=== PATIENT | female | born 2000 | race Caucasian/White ===

== ENCOUNTER 2019-01-29 16:56 | Emergency (ER) | payer BC ==
[~2019-01-29] VITALS: Ht 162.6 cm; Wt 60.8 kg
[~2019-01-29 16:56] MED LIST: CLARITIN10 MG; MUPIROCIN22 GM; SEPTRA DS TABL1 EACH
[2019-01-29 17:22] LABS: URINE BILIRUBIN NEGATIVE (Negative); URINE BLOOD 3+ (Negative); URINE CLARITY SL CLOUDY; URINE COLOR YELLOW; URINE GLUCOSE-RANDOM* NEGATIVE (Negative); URINE KETONES NEGATIVE (Negative); URINE LEUKOCYTES 2+ (Negative); URINE NITRITE NEGATIVE (Negative); URINE PROTEIN (DIPSTICK) TRACE (Negative); URINE SPECIFIC GRAVITY >= 1.030 (1.005-1.035)
[2019-01-29 17:37] LABS: MUCUS >6 Heavy strn/LPF (None Seen); SQUAMOUS >10 Many /LPF (0-3)
[2019-01-29 17:38] LABS: CASTS None Seen /LPF (None Seen); CRYSTALS None Seen /LPF (None Seen); URINE RBC 3-10 Few /HPF (0-2); URINE WBC 6-15 Few /HPF (0-5)
[2019-01-29 18:37] LABS: ABSOLUTE NEUTROPHILS 4.4 thou/uL (1.4-8.2); BASOPHILS 1.2 % (0.0-2.0); EOSINOPHILS 6.3 % (0.0-3.0); HEMATOCRIT 41.9 % (37.0-47.0); HEMOGLOBIN 14.3 gm/dL (12.0-15.0); LYMPHOCYTES 32.9 % (24.0-44.0); MCH 29.1 pg (26.0-34.0); MCHC 34.2 g/dL (28.0-37.0); MCV 85.1 fL (80.0-100.0); MONOCYTES 8.3 % (1.0-8.0); PLATELET COUNT 384 thou/uL (150-400); POLYS 51.3 % (36.0-66.0); RBC 4.93 mil/uL (4.20-5.00); RDW 13.3 % (10.5-14.5); WBC 8.6 thou/uL (4.0-11.0)
[2019-01-29 18:44] LABS: CALCIUM 9.1 mg/dL (8.5-10.1); CREATININE 0.8 mg/dL (0.6-1.0)
[2019-01-29 18:50] LABS: ALBUMIN 4.1 g/dL (3.4-5.0); TOTAL BILIRUBIN 0.5 mg/dL (<0.1-1.0); TOTAL PROTEIN 7.7 g/dL (6.4-8.2)
[2019-01-29] MEDS ORDERED: ULTRAM 50MG TAB50 MG PO (20:18)
[2019-01-29] MEDS ORDERED: IBUPROFEN 600600 M1 PO (20:18)
[2019-01-29] MEDS ORDERED: KEFLEX500 M1 PO (20:18)
[2019-01-29] MEDS ORDERED: ZOFRAN ODT4 MG PO (20:19)
[2019-01-29 20:39] VITALS: BP 108/62
== END 2019-01-29 20:39 | disposition home or self-care (01) ==
LOC: ER 16:56
PROVIDERS: Emergency Medicine
DX: N39.0 Urinary tract infection, site not specified (principal); R42 Dizziness and giddiness; F17.210 Nicotine dependence, cigarettes, uncomplicated

== ENCOUNTER 2019-08-30 13:21 | Emergency (ER) | payer BC ==
[~2019-08-30] VITALS: Ht 162.6 cm; Wt 63.5 kg
[~2019-08-30 13:21] MED LIST changes: +IBUPROFEN 600600 M1 PO; +KEFLEX500 M1 PO; +ULTRAM 50MG TAB50 MG PO; +ZOFRAN ODT4 MG PO
[2019-08-30] MEDS ORDERED: NAPROSYN500 MG PO (14:56)
[2019-08-30] MEDS ORDERED: TRAMADOL 50 MG50 MG PO (14:56)
[2019-08-30 15:30] VITALS: BP 96/62
== END 2019-08-30 15:30 | disposition home or self-care (01) ==
LOC: ER 13:21
DX: S60.221A Contusion of right hand, initial encounter (principal); F17.210 Nicotine dependence, cigarettes, uncomplicated; W51.XXXA Accidental striking against or bumped into by another person, initial encounter; Y93.89 Activity, other specified; Y92.89 Other specified places as the place of occurrence of the external cause; Y99.8 Other external cause status